=== PATIENT | female | born 1970 | race Caucasian/White ===

== ENCOUNTER → 2019-06-24 | Outpatient (CLI) | payer OTHER ==
--- NOTE | 2019-06-24 11:57 | KCIC ---
Bilateral digital screening mammograms with 3-D tomosynthesis: Reason for examination: Routine screening. New baseline. Bilateral mammograms in CC and oblique projections were obtained with 2-D imaging and 3-D tomosynthesis imaging on a Siemens Inspiration unit and reviewed on the workstation. Interpretation was made with the benefit of CAD. The skin and nipples show no abnormalities. No abnormal axillary lymph nodes are seen. The breast parenchyma shows scattered fatty and fibroglandular density. (Breast density: Category B.) There are small nodular densities seen in the right breast at approximately the 8:00 position 3 cm from the nipple measuring 7 mm in size, 9:00 position measuring 8 mm in size and retroareolar position 6 cm deep to the nipple measuring 8 mm in size. There also appears to be a small nodule present in the 6:00 position of the left breast approximately 7 cm from the nipple measuring 9.4 mm in size. Further evaluation with ultrasound is recommended. There are no other dominant masses, suspicious calcifications or architectural distortion. Impression: Small nodular densities bilaterally as described above. Recommend further evaluation with ultrasound. BI-RADS Category 0: Incomplete. Needs additional imaging evaluation "Our facility is accredited by the [employer] Mammography [employer]." This patient's information has been entered into a reminder system for the patient to be notified with the results of her examination and a target date for the next mammogram. Electronically signed by: Arlene Diehl MD (06/24/2019 11:54 AM) [email or web address]
== END | disposition home or self-care (01) ==
LOC: KCIC MAMMO 09:52
PROVIDERS: ATTEND Family Medicine
DX: Z12.31 Encounter for screening mammogram for malignant neoplasm of breast (principal)
CPT/HCPCS: 77063; 77067

== ENCOUNTER → 2019-06-30 | Outpatient (CLI) | payer OTHER ==
--- NOTE | 2019-06-30 16:17 | KCIC ---
Bilateral breast ultrasound: Reason for examination: Nodules on screening mammogram. Comparison is made to mammographic exam dated 06/24/2019. Bilateral whole breast ultrasound including evaluation of all 4 quadrants and the retroareolar and axillary regions of both breasts was performed. In the right breast at the 8:00 position 5 cm from the nipple, there is a small 4.3 mm hypoechoic fibrocystic type lesion in parallel orientation. At the 9:00 position 3 cm from the nipple, there is a small 4 mm hypoechoic lesion probably representing small focus of fibrocystic change. In the 12:00 position 6 cm from the nipple, there is a 5.4 mm hypoechoic fibrocystic type lesion. No abnormal appearing lymph nodes are seen in the right axilla. In the left breast, there is a focal patch of fibrocystic-type change at the 8:00 position 7 cm from the nipple which has benign appearance. No other cystic or solid lesions are seen. No abnormal appearing lymph nodes are seen in the left axilla. IMPRESSION: Benign-appearing fibrocystic type nodules bilaterally. No suspicious lesion seen. Recommend 6 month follow-up with mammograms and ultrasound. BI-RADS Category 3: Probably Benign. "Our facility is accredited by the [employer]ammography [employer]." This patient's information has been entered into a reminder system for the patient to be notified with the results of her examination and a target date for the next mammogram. Electronically signed by: Arlene Diehl MD (06/30/2019 4:14 PM) [email or web address]
== END | disposition home or self-care (01) ==
LOC: KCIC US 10:40
PROVIDERS: ATTEND Family Medicine
DX: N63.20 Unspecified lump in the left breast, unspecified quadrant (principal); N63.10 Unspecified lump in the right breast, unspecified quadrant
CPT/HCPCS: 76641